=== PATIENT | male | born 1970 | race Caucasian/White ===

== ENCOUNTER → 2016-06-12 | Outpatient (CLI) | payer OTHER ==
--- NOTE | ~2016-06-12 | MR113 ---
[facility] A Service of [facility] & [facility] / [facility] RADIOLOGY TEXT RESULTS PATIENT: RACHELLE KATZ LOCATION: [facility] : 74 UNIT #: [id number] AGE: [address]: JOE ROMANO APRN SEX: M ORDER DR: [id number] [address] [address] [id number] MR#: [id number] Acc #: [id number] NAME: RACHELLE KATZ : 1970 SEX: M STUDY DATE/TIME: 06/12/2016 12:27 UNIT: [facility] ROOM: STUDY DESCRIPTION: MR Lumbar Wo Contrast Attending Physician: Joe Romano A.P.R.N. Referring Physician: Joe Romano A.P.R.N. Ordering Physician: Guerline Not Listed Primary Care Physician: Joe Romano A.P.R.N. MRI CENTER REPORT This report is preliminary unless electronic signature is present. EXAM Lumbar spine MRI. HISTORY Back pain radiating to left lower extremity, beginning on 04/27/2016. TECHNIQUE Multiplanar imaging of the lumbar spine was performed with short and long TR. FINDINGS Alignment is satisfactory. The L1-L2 and L2-L3 levels are normal. At L3-L4 and L4-L5, there is mild degenerative disc disease with mild concentric disc bulging. At the L3-L4 level, this causes mild central stenosis. At L4-L5, central stenosis is moderate. The L5-S1 disc is normal. Foraminal narrowing is seen, predominantly on the left at L3-L4, secondary to a focal protrusion within the foramen. There is near complete loss of fat around the exiting nerve root. The left L4-L5 foramen is also moderately narrowed. On the right side, foraminal narrowing is most prominent at L4-L5, where it is present to a moderate degree from a combination of disc and facet disease. The conus is normal. There is no evidence of marrow edema or paraspinous mass. There is increased T2 signal seen in the left L3 nerve lateral to the foramen at and just below the L3-L4 level that could reflect some neuritis. Correlate with the distribution of the patient's left-sided radicular symptoms. There is no evidence of marrow edema or paraspinous mass. IMPRESSION Degenerative disc and facet disease, as described above level by level. Degenerative disc disease is seen at L3-L4 and L4-L5. There is asymmetric relative left foraminal stenosis from protruding disc at the L3-L4 level. This is accompanied by some edematous change in the exiting nerve root and STS. [facility] A Service of [facility] RADIOLOGY TEXT RESULTS PATIENT: RACHELLE KATZ LOCATION: [facility] : 74 UNIT #: [id number] AGE: [address]: JOE ROMANO APRN SEX: M ORDER DR: perineural tissues on the left side and could be a potential source for left-sided radicular symptoms. On the right side, there is moderate foraminal narrowing at L4-L5, but the L3-L4 foramen is widely patent. No discrete disc herniation is seen. Dictated by... Tramaine Robbins M.D. THIS IS AN ELECTRONICALLY VERIFIED REPORT Tramaine Robbins M.D. at 06/12/2016 4:39 PM RYAN/portillo TD: 06/12/2016 16:00 JOB #: [id number] MRI CENTER REPORT Page 1 of 1
== END | disposition home or self-care (01) ==
LOC: SMRI 11:10
DX: M54.16 Radiculopathy, lumbar region (principal); M51.16 Intervertebral disc disorders with radiculopathy, lumbar region
CPT/HCPCS: 72148